=== PATIENT | female | born 1960 | race African-American/Black ===

== ENCOUNTER 2021-02-23 16:19 | Emergency (ER) | payer MEDICARE, MEDICAID ==
[~2021-02-23] VITALS: Ht 165.1 cm; Wt 78.0 kg
[2021-02-23 19:55] LABS: BASOPHILS % 0.2 % (0.0-2.0); CHLORIDE 108 mEq/L (98-107); EOSINOPHILS % 0.8 % (0.0-5.0); HEMATOCRIT. 33.7 % (36.0-48.0); HEMOGLOBIN. 10.8 g/dL (12.0-16.0); LYMPHOCYTES % 32.7 % (20.0-50.0); MEAN CORPUSCULAR HEMOGLOBIN 27.9 pg (28.0-32.0); MEAN PLATELET VOLUME 6.8 fl (7.4-10.4); MONOCYTES % 5.9 % (2.0-8.0); NEUTROPHILS % 60.4 % (40.0-76.0); PLATELET 256 x1000/uL (130-400); RED BLOOD CELL COUNT 3.87 mill/uL (4.2-5.4); RED CELL DISTRIBUTION WIDTH 16.1 % (11.6-14.6)
[2021-02-23] MEDS ORDERED: BENZ1TAB7 MT (21:24)
[2021-02-23] MEDS ORDERED: LITH150C MT (21:24)
[2021-02-23 21:40] VITALS: BP 132/82
== END 2021-02-23 21:40 | disposition home or self-care (01) ==
LOC: ER 16:19
DX: Z76.0 Encounter for issue of repeat prescription (principal); F25.0 Schizoaffective disorder, bipolar type; F17.210 Nicotine dependence, cigarettes, uncomplicated; Z71.6 Tobacco abuse counseling
CPT/HCPCS: 36415; 80053; 80178; 85025; 99283; 99406

== ENCOUNTER 2021-10-30 16:32 | Emergency (ER) | payer MEDICARE, MEDICAID ==
[~2021-10-30] VITALS: Ht 160 cm; Wt 55.0 kg
[~2021-10-30 16:32] MED LIST: BENZ1TAB7 MT; LITH150C MT
[2021-10-30 20:30] VITALS: BP 111/63
[2021-10-30] MEDS ORDERED: HYDROCODONE/ACETAMINOPHEN 5/325MG TABLET PO ONE (20:30)
[2021-10-30] MEDS ORDERED: TOPUD MT (20:42)
== END 2021-10-30 22:08 | disposition home or self-care (01) ==
LOC: ER 16:32
DX: M25.572 Pain in left ankle and joints of left foot (principal)
CPT/HCPCS: 73610; 99283

== ENCOUNTER 2023-07-13 18:09 | Inpatient (IN) | payer MEDICARE, MEDICAID ==
[~2023-07-13] VITALS: Ht 172.7 cm; Wt 48.1 kg
[~2023-07-13 18:09] MED LIST changes: +ALBU90AE; -BENZ1TAB7 MT; +BENZ1TAB78 PO; +DIVA-73 PO; +FAMO20TA8 PO; +LOSA-412 PO; +TOPUD MT
[2023-07-13] MEDS ORDERED: PREDNISONE 20MG TABLET PO STA (19:23)
[2023-07-13] MEDS ORDERED: IPRATROPIUM BROMIDE (0.02%) 0.5MG/2.5ML NEB HHN STA (19:23)
[2023-07-13] MEDS: ALBUTEROL (0.083%) 2.5MG/3ML NEB HHN SCH ×2 (20:00→22:00)
[2023-07-13] MEDS: PREDNISONE 20MG TABLET PO NR (21:30)
[2023-07-13] MEDS: IPRATROPIUM BROMIDE (0.02%) 0.5MG/2.5ML NEB HHN NR (21:52)
[2023-07-13 21:53] VITALS: PULSE 97; RESP 18; O2SAT 96
[2023-07-13 22:08] LABS: HEMATOCRIT. 36.6 % (36.0-48.0); HEMOGLOBIN. 11.8 g/dL (12.0-16.0); MEAN CORPUSCULAR HEMOGLOBIN 29.9 pg (28.0-32.0); MEAN CORPUSCULAR HGB CONC 32.4 g/dL (31.0-37.0); MEAN CORPUSCULAR VOLUME 92.4 fL (81.0-99.0); MEAN PLATELET VOLUME 7.7 fl (7.4-10.4); PLATELET 270 x1000/uL (130-400); RED BLOOD CELL COUNT 3.96 mill/uL (4.2-5.4); RED CELL DISTRIBUTION WIDTH 16.8 % (11.6-14.6); WHITE BLOOD COUNT 7.1 x1000/uL (4.5-11.0)
[2023-07-13 22:15] LABS: DIFFERENTIAL COMMENT 1
[2023-07-13 22:22] LABS: ALANINE AMINOTRANSFERASE < 7 IU/L (10-49); ALBUMIN 3.9 g/dL (3.2-4.8); ASPARTATE AMINOTRANSFERASE 14 IU/L (<34); BILIRUBIN TOTAL 0.3 mg/dL (0.1-1.0); CARBON DIOXIDE 31 mEq/L (21-32); CHLORIDE 104 mEq/L (98-107); CREATININE 0.8 mg/dL (0.6-1.0); GLUCOSE 127 mg/dL (70-105); POTASSIUM 4.6 mEq/L (3.5-5.1); PROTEIN TOTAL 7.8 g/dL (6.0-8.3); SODIUM 139 mEq/L (136-145); TROPONIN I HIGH SENSITIVITY 7 ng/L (3.0-34); UREA NITROGEN BLOOD 16 mg/dL (9-23)
[2023-07-13 23:23] LABS: ANISOCYTOSIS 1+; PLATELET ESTIMATE NORMAL
[2023-07-14] VITALS (7 sets, daily range): BP systolic 119–138; BP diastolic 64–83; PULSE 63–89; RESP 17–20; TEMP 97.2–98.1; O2SAT 99
[2023-07-14] MEDS ORDERED: ACETAMINOPHEN 325MG TABLET PO PRN
[2023-07-14] MEDS ORDERED: DOCUSATE SODIUM 100MG CAPSULE PO PRN
[2023-07-14] MEDS ORDERED: IPRATROPIUM/ALBUTEROL 0.5-3(2.5)MG/3ML NEB NEB PRN
[2023-07-14] MEDS ORDERED: NA PHOS,M-B/NA PHOS,DI-BA ENEMA 118ML PR PRN
[2023-07-14] MEDS ORDERED: MAGNESIUM/ALUMINUM HYDROXIDE/SIMETHICONE 30ML UDC PO PRN
[2023-07-14] MEDS ORDERED: DIPHENHYDRAMINE 50MG/ML VIAL IV PRN
[2023-07-14] MEDS ORDERED: CLONIDINE 0.1MG TABLET PO PRN
[2023-07-14] MEDS ORDERED: ONDANSETRON HCL 4MG/2ML INJ IV PRN
[2023-07-14] MEDS ORDERED: LEVOFLOXACIN 500MG PREMIX 100 ML IV SCH
[2023-07-14] MEDS ORDERED: GUAIFENESIN 200MG/10ML SUGAR FREE UDC PO PRN
[2023-07-14] MEDS: LEVOFLOXACIN 500MG PREMIX 100 ML IV SCH (05:16)
[2023-07-14] MEDS: METHYLPREDNISOLONE SOD SUCC 125MG/2ML (ACT-O-VIAL) IV SCH (05:16)
[2023-07-14 06:27] LABS: INR 0.9; PROTHROMBIN TIME 10.4 sec (9.6-11.0)
[2023-07-14 06:47] LABS: BASOPHILS % 0.3 % (0.0-2.0); HEMATOCRIT. 40.5 % (36.0-48.0); HEMOGLOBIN. 13.3 g/dL (12.0-16.0); LYMPHOCYTES % 20.3 % (20.0-50.0); MEAN CORPUSCULAR HEMOGLOBIN 29.8 pg (28.0-32.0); MEAN CORPUSCULAR HGB CONC 32.8 g/dL (31.0-37.0); MEAN CORPUSCULAR VOLUME 90.8 fL (81.0-99.0); MEAN PLATELET VOLUME 7.9 fl (7.4-10.4); MONOCYTES % 0.7 % (2.0-8.0); NEUTROPHILS % 78.7 % (40.0-76.0); PLATELET 262 x1000/uL (130-400); RED BLOOD CELL COUNT 4.47 mill/uL (4.2-5.4); RED CELL DISTRIBUTION WIDTH 16.5 % (11.6-14.6); WHITE BLOOD COUNT 3.2 x1000/uL (4.5-11.0)
[2023-07-14 06:49] LABS: CALCIUM 9.4 mg/dL (8.7-10.4); CARBON DIOXIDE 28 mEq/L (21-32); CHLORIDE 103 mEq/L (98-107); CREATININE 0.8 mg/dL (0.6-1.0); GLUCOSE 127 mg/dL (70-105); POTASSIUM 4.8 mEq/L (3.5-5.1); SODIUM 139 mEq/L (136-145); TROPONIN I HIGH SENSITIVITY 4 ng/L (3.0-34); UREA NITROGEN BLOOD 16 mg/dL (9-23)
[2023-07-14 08:05] LABS: HEPATITIS B SURFACE ANTIGEN NEGATIVE (Negative); HEPATITIS C AB NON REACTIVE (Neg) (Negative)
[2023-07-14] MEDS: ASPIRIN 325MG EC TABLET PO SCH (09:53)
[2023-07-14] MEDS: DIVALPROEX SODIUM 250MG DR TABLET PO SCH (20:43)
[2023-07-15] VITALS: BP 127/82; PULSE 88; RESP 20; TEMP 97.5
[2023-07-15 00:19] LABS: TROPONIN I HIGH SENSITIVITY 4 ng/L (3.0-34)
[2023-07-15 04:00] VITALS: BP 116/64; PULSE 63; RESP 19; TEMP 97.2
[2023-07-15] MEDS: LEVOFLOXACIN 750MG PREMIX 150 ML IV SCH (05:20)
[2023-07-15 07:58] VITALS: BP 115/78; PULSE 70; RESP 19; TEMP 97.7
[2023-07-15] MEDS: ASPIRIN 81MG TABLET PO SCH (08:33)
[2023-07-15] MEDS: FAMOTIDINE 20MG TABLET PO SCH (08:33)
[2023-07-15] MEDS: LOSARTAN 25 MG TABLET PO SCH (08:33)
[2023-07-15] MEDS: LITHIUM CARBONATE 150 MG CAPSULE PO SCH (08:33)
[2023-07-15] MEDS: ENOXAPARIN 40MG/0.4ML SYR SUBCUT SCH (11:37)
[2023-07-15 12:16] VITALS: BP 126/70; PULSE 62; RESP 19; TEMP 98.1
[2023-07-15] MEDS: FUROSEMIDE 40MG/4ML VIAL IVP NR (12:48)
[2023-07-15 16:08] VITALS: BP 121/73; PULSE 102; RESP 18; TEMP 98.2
[2023-07-15 17:35] LABS: BASOPHILS % 0.7 % (0.0-2.0); EOSINOPHILS % 0.1 % (0.0-5.0); HEMATOCRIT. 40.5 % (36.0-48.0); HEMOGLOBIN. 13.1 g/dL (12.0-16.0); LYMPHOCYTES % 32.5 % (20.0-50.0); MEAN CORPUSCULAR HEMOGLOBIN 29.6 pg (28.0-32.0); MEAN CORPUSCULAR HGB CONC 32.3 g/dL (31.0-37.0); MEAN CORPUSCULAR VOLUME 91.8 fL (81.0-99.0); MEAN PLATELET VOLUME 7.3 fl (7.4-10.4); MONOCYTES % 9.6 % (2.0-8.0); NEUTROPHILS % 57.1 % (40.0-76.0); PLATELET 338 x1000/uL (130-400); RED BLOOD CELL COUNT 4.41 mill/uL (4.2-5.4); RED CELL DISTRIBUTION WIDTH 16.5 % (11.6-14.6); WHITE BLOOD COUNT 6.2 x1000/uL (4.5-11.0)
[2023-07-15 17:58] LABS: CALCIUM 9.3 mg/dL (8.7-10.4); CARBON DIOXIDE 28 mEq/L (21-32); CHLORIDE 101 mEq/L (98-107); CREATININE 0.9 mg/dL (0.6-1.0); GLUCOSE 97 mg/dL (70-105); POTASSIUM 4.6 mEq/L (3.5-5.1); SODIUM 135 mEq/L (136-145); UREA NITROGEN BLOOD 31 mg/dL (9-23)
[2023-07-15 20:00] VITALS: BP 105/60; PULSE 95; RESP 20; TEMP 96.4
[2023-07-16] VITALS (7 sets, daily range): BP systolic 83–113; BP diastolic 50–70; PULSE 61–105; RESP 18–20; TEMP 97.5–98.3
[2023-07-16 07:30] LABS: BASOPHILS % 0.3 % (0.0-2.0); EOSINOPHILS % 0.6 % (0.0-5.0); HEMATOCRIT. 39.2 % (36.0-48.0); HEMOGLOBIN. 12.7 g/dL (12.0-16.0); LYMPHOCYTES % 42.7 % (20.0-50.0); MEAN CORPUSCULAR HEMOGLOBIN 29.2 pg (28.0-32.0); MEAN CORPUSCULAR HGB CONC 32.3 g/dL (31.0-37.0); MEAN CORPUSCULAR VOLUME 90.2 fL (81.0-99.0); MEAN PLATELET VOLUME 7.8 fl (7.4-10.4); MONOCYTES % 8.7 % (2.0-8.0); NEUTROPHILS % 47.7 % (40.0-76.0); PLATELET 296 x1000/uL (130-400); RED BLOOD CELL COUNT 4.35 mill/uL (4.2-5.4); RED CELL DISTRIBUTION WIDTH 16.8 % (11.6-14.6); WHITE BLOOD COUNT 5.2 x1000/uL (4.5-11.0)
[2023-07-16 07:42] LABS: CALCIUM 9.3 mg/dL (8.7-10.4); CARBON DIOXIDE 34 mEq/L (21-32); CHLORIDE 102 mEq/L (98-107); GLUCOSE 63 mg/dL (70-105); POTASSIUM 4.1 mEq/L (3.5-5.1); SODIUM 140 mEq/L (136-145); UREA NITROGEN BLOOD 38 mg/dL (9-23)
[2023-07-16] MEDS ORDERED: ASPI-867 PO (11:13)
[2023-07-16] MEDS ORDERED: ATOR20TA65 PO (11:13)
[2023-07-16 16:24] LABS: T4 FREE 1.48 ng/dL (0.89-1.76); THYROID STIMULATING HORMONE 2.79 uIU/mL (0.55-4.78)
[2023-07-16 18:04] LABS: CREATINE KINASE 27 IU/L (34-145); CREATINE KINASE MB FRACTION 2.2 ng/mL (0.5-3.6); TROPONIN I HIGH SENSITIVITY 5 ng/L (3.0-34)
[2023-07-17] VITALS: BP 111/68; PULSE 104; RESP 20; TEMP 98.2
[2023-07-17 00:38] LABS: CREATINE KINASE MB FRACTION 1.8 ng/mL (0.5-3.6)
[2023-07-17 04:00] VITALS: BP 103/76; PULSE 100; RESP 20; TEMP 99
[2023-07-17 09:12] LABS: CREATINE KINASE MB FRACTION 1.2 ng/mL (0.5-3.6); TROPONIN I HIGH SENSITIVITY 5 ng/L (3.0-34)
[2023-07-17 09:16] LABS: CREATINE KINASE < 15 IU/L (34-145)
[2023-07-18] MEDS ORDERED: LEVOFLOXACIN 750MG PREMIX 150 ML IV SCH (06:00)
== END 2023-07-17 10:30 | DRG 190 ==
LOC: ER 18:09 → 7WST 22:46
PROVIDERS: ADMIT Internal Medicine; ATTEND Internal Medicine
DX: J44.1 Chronic obstructive pulmonary disease with (acute) exacerbation (principal); I26.99 Other pulmonary embolism without acute cor pulmonale; E87.1 Hypo-osmolality and hyponatremia; F03.93 Unspecified dementia, unspecified severity, with mood disturbance; R00.0 Tachycardia, unspecified; F20.9 Schizophrenia, unspecified; F31.9 Bipolar disorder, unspecified; Z74.01 Bed confinement status; Z79.899 Other long term (current) drug therapy
CPT/HCPCS: 36415; 71045; 78580; 80048; 80053; 80061; 82550; 82553; 83036; 83880; 84439; 84443; 84484; 85025; 85379; 86705; 87340; 93005; 93306; 93970; 94640; 97162; 99285; J1650; J1940; J1956; J2930; J7512